=== PATIENT | male | born 1995 | race Caucasian/White ===

== ENCOUNTER 2018-06-05 12:58 | Emergency (ER) | payer OTHER | END 2018-06-05 15:37 | disposition home or self-care (01) | LOC: E/R 12:58 | DX: Z48.01 Encounter for change or removal of surgical wound dressing (principal) | CPT/HCPCS: 99281; Z7502 ==

== ENCOUNTER 2018-06-12 22:50 | Emergency (ER) | payer SELFPAY, OTHER | END 2018-06-12 22:55 | disposition left against medical advice (07) | LOC: FTE 22:55 | DX: Z53.21 Procedure and treatment not carried out due to patient leaving prior to being seen by health care provider (principal) ==

== ENCOUNTER 2018-06-14 12:30 | Emergency (ER) | payer OTHER | END 2018-06-14 16:07 | disposition home or self-care (01) | LOC: FTE 12:30 | DX: Z48.02 Encounter for removal of sutures (principal) | CPT/HCPCS: 99281; Z7502 ==

== ENCOUNTER 2018-10-10 00:54 | Emergency (ER) | payer OTHER ==
[2018-10-10] MEDS: CYCLOBENZAPRINE 10 MG TAB PO (04:06)
[2018-10-10] MEDS: IBUPROFEN 600 MG TAB PO (04:06)
== END 2018-10-10 05:04 | disposition home or self-care (01) ==
LOC: FTE 00:54
DX: M54.9 Dorsalgia, unspecified (principal); M62.830 Muscle spasm of back
CPT/HCPCS: 93005; 99283-25